=== PATIENT | male | born 1960 | race African-American/Black ===

== ENCOUNTER → 2017-07-10 | Outpatient (CLI) | payer BC ==
--- NOTE | ~2017-07-10 | CR63 ---
[facility] A Service of [facility] RADIOLOGY TEXT RESULTS PATIENT: MARLEY DANIELLE JR LOCATION: [facility] : 58 UNIT #: [id number] AGE: [address]: Real Galvan MD SEX: M ORDER DR: [id number] [address] [address] [id number] MR#: [id number] Acc #: [id number] NAME: MRALEY DANIELLE : 1960 SEX: M STUDY DATE/TIME: 07/10/2017 20:49 UNIT: [facility] ROOM: STUDY DESCRIPTION: CR Chest 2 View Attending Physician: Real Galvan M.D. Ordering Physician: Real Galvan M.D. Primary Care Physician: Uriah Chase M.D. MEDICAL IMAGING REPORT This report is preliminary unless electronic signature is present EXAM Chest x-ray 07/10 INDICATIONS Shortness of air with activity and cough. Symptoms started about one year ago. COMPARISON: None FINDINGS PA and lateral examination of the chest upright shows a good expansion of the parenchyma with a normal distribution of the pulmonary vascularity. There is no indication of congestion, effusion, infiltrate, tumor, or nodular density. The pleural reflections and diaphragmatic contours are normal. The cardiac silhouette and mediastinal anatomy is within normal limits. IMPRESSION Normal chest. Dictated by... Real Hunter Jr., M.D. THIS IS AN ELECTRONICALLY VERIFIED REPORT Real Hunter Jr., M.D. at 07/12/2017 2:08 PM ERWIN/monserrat TD: 07/11/2017 09:51 JOB #: [id number] [facility] A Service [facility] RADIOLOGY TEXT RESULTS PATIENT: MARLEY DANIELLE JR LOCATION: [facility] : 58 UNIT #: [id number] AGE: [address]: Real Galvan MD SEX: M ORDER DR: MEDICAL IMAGING REPORT Page 1 of 1 COPY
[2017-07-10 21:01] LABS: ALBUMIN SERUM 4.6 g/dL (3.5-5.0); BILIRUBIN,TOTAL 0.3 mg/dL (0.2-2.0); BUN/CREATININE RATIO 8.66; CREATININE SERUM 1.5 mg/dL (0.6-1.4); GLOM FILT RATE Estimated 59.1 mL/min (>60); POTASSIUM 3.8 mmol/L (3.5-5.1); PROTEIN TOTAL SERUM 7.4 g/dL (6.0-8.3)
== END | disposition home or self-care (01) ==
LOC: CRAD 20:18
PROVIDERS: Urology
DX: C64.1 Malignant neoplasm of right kidney, except renal pelvis (principal)
CPT/HCPCS: 71020; 80053